=== PATIENT | female | born 1995 | race Caucasian/White ===

== ENCOUNTER → 2025-05-31 10:02 | Outpatient (CLI) | payer BC, SELFPAY ==
--- OUTSIDE RECORDS SUMMARY | 2025-05-31 10:08 | XMS_ITS | Clinical Summary ---
Author Organization [facility] Address [address] [place] [address] Phone Care Team Providers Care Reliner Name Role Phone Radha De La Cruz DO Primary Care Provider [phone] Allergies No known active allergies Medications nicotine (NICODERM CQ) 21 mg/24 hr TD Patch 24 hrIndications:To bacco dependence due to cigarettes Place 1 Patch onto the skin every 24 hours. 30 Patch 1 05/19/2024 Active Active Problems Problem Noted Date Diagnosed Date Pain in right finger(s) 05/19/2024 Other acne 05/19/2024 Acute tonsillitis 05/19/2024 Tobacco dependence due to cigarettes 03/12/2023 Gastroesophageal reflux dise ase with esophagitis without hemorrhage 03/12/2023 Suppurative hidradenitis 03/06/2023 Overview (03/06/2023): no noted inflammed lesions but old lesions noted- rec dietary changes, loose fitting underwear, reduce friction, if worsens RTO S/P ACL surgery 04/25/2013 MMT (medial meniscus tear) 11/29/2012 Smoker Overview (06/19/2016): 1/2 PPD, started at age 18 Wears glasses Resolved Problems Problem Noted Date Diagnosed Date Resolved Date Routine infant or child health check 05/19/2024 05/19/2024 Need for vaccination 05/18/2013 024 Immunizations Immunization Administration Dates Next Due DTP 1996 DTP/HiB 01/23/1997,1996,1996 DTaP, Unspecified Formulation 10/14/2000, 998,1996 HPV Quadrivalent 01/04/2016, 4,09/05/2013,0809/2012 Hep A/Hep B 12/05/2015,06/11/2015,05/07/2015 Hepatitis B, Ped/Adol 1996 Hepatitis B, Unspecified Formulation 1997, 1996 HiB, Unspecified Formulation 10/14/2000,09/23/19 97,1996 IPV 06/11/2015,10/14/2000 Influenza Vaccine Quadrivalent 06/19/2014 Influenza, Live, Intranasal 08/09/2015 MMR 10/14/2000,08/14/1998 Meningococcal Conjugate 05/18/2013 Meningococcal Oligosaccharide Conjugate 05/07/20 15 Meningococcal Polysaccharide 04/12/2008 OPV-Trivalent 01/23/1997,1996 Polio, Unspecified Formulation 1996 Tdap 05/07/2015,04/12/2008 Varicella 05/02/2015,04/12/2008,1997 Surgical History Surgery Date Site/Laterality Comments KNEE SURGERY Right ACL KNEE SURGERY 09/28/2011 - 09/27/2012 Right ACL KNEE SURGERY 09/28/2012 - 09/27/2013 Right ACL and meniscus repair KNEE ARTHROSCOPY 06/24/2016 Right RIGHT KNEE ARTHROSCOPY PARTIAL MEDIAL MENISCECTOMY CHONDROPLASTY ; Surgeon: Cassius Santos MD; Location: [facility]; Service: Orthopedics Medical History Medical History Date Comments Smoker 1/2 PPD, started at age 18 Wears glasses Family History Relation Name Status Comments Father Alive Mother Alive Social History Tobacco Use Types Packs/Day Years Used Date Smoking Tobacco: Every Day Cigarettes 0.5 11.7 Started: 09/28/2013 Smokeless Tobacco: Never Tobacco Cessation:Ready to Q uit: Not Asked; Counseling Given: Not Answered Alcohol Use Standard Drinks/Week Comments Not Currently 0 (1 standard drink = 0.6 oz pur e alcohol) PHQ-2 Answer Date Recorded PHQ-2 Total Score 0 03/12/2023 Sexually Active Control Partners Comments Yes Other-see comments Male none Comments No Sex and Gender Information Value Date Recorded Sex Assigned at Not on file Legal Sex Female 7:21 AM EDT Gender Identity Not on file Sexual Orientation Not on file Obstetrics History Para Term AB IAB SAB Ectopic Multiple Livin g Live Births 0 0 0 0 0 0 0 0 0 0 Last Filed Vital Signs Vital Sign Reading Time Taken Comments Blood Pressure 120/80 05/19/2024 8:15 AM EDT Pulse 76 05/19/2024 8:15 AM EDT Temperature 37 C (98.6 F) 05/19/2024 8:15 AM EDT Respiratory Rate 16 03/12/2023 1:22 PM EDT Oxygen Saturation 98% 05/19/2024 8:15 AM EDT Inhaled Oxygen Concentration - - Weight 57.2 kg (126 lb) 05/19/2024 8:15 AM EDT Height 165.1 cm (5' 5 ) 05/19/2024 8:15 AM EDT Body Mass Index 20.97 05/19/2024 8:15 AM EDT Plan of Treatment Health Maintenance Due Date Last Done Comments Pneumococcal Vaccine 0-49 (1 of 2 - PCV) 2015 COVID-19 Vaccine ( - season) 2024 DTaP/TDaP/Td (8 - Td or Tdap) 05/07/2025 05/07/2015, 04/12/2008, 10/14/2000, Additional history exists Annual Wellness Exam 05/19/2025 05/19/2024 Influenza Vaccine (#1) 2025 08/09/2015, 2013 Cervical Cancer Screening 03/06/2026 Pap Smear 03/06/2026 03/06/2023, 08/29, 09/17/2021, Additional history exists Hepatitis B Vaccine Completed 12/05/2015, 06/11/2015, 05/07/2015, Additional history exists Meningococcal B Vaccine Aged Out No l onger eligible based on patient's age to complete this topic Goals Goal Patient Goal Type Associated Problems Recent Progress Patient-Stated? Author Maintain a healthy diet, exercise regularly and maintain an ideal body weight General No Jesse Rinaldi MA Stay Tobacco Free Lifestyle No Jesse Rinaldi MA Medical Devices Implanted Type Area Audit Officer Device Identifier Shelf Expiration Date Model / Serial / Lot Acl Staple X 1 And ?X 1 Procedures Procedure Name Priority Date/Time Associated Diagnosis Comments RADIO REPAIRER CYTOLOGY REQUEST (PAP ONLY) Routine 03/06/2023 3:15 PM EDT Well female exam with routine gynecological exam Screening for cervical cancer Screening for STDs (sexually transmitted diseases) from Last 3 Months or Most Recently Relevant to Health Maintenance Results * RADIO REPAIRER CYTOLOGY REQUEST (PAP ONLY) (03/06/2023 3:15 PM EDT) CASE REPORT Gynecologic Cytology Report Case: [id number] Authorizing Provider: Maricarmen Braxton APRN Collected: 03/06/2023 1515 Ordering Location: [facility] Edg Received: 03/06/2023 1515 First Screen: Kasi Rodriges CT Rescreen: Indu Soriano CT Specimen: LIQUID-BASED PAP - CERVICAL/ENDOCERV ICAL, Cervix, Endocervical 03/11/2023 9:54 AM EDT [facility] PAP FINAL DIAGNOSIS Negative for intraepithelial lesion or malignancy 03/11/2023 9:54 AM EDT [facility] at 0954 EDT MICROSCOPIC DESCRIPTION Microscopic examination is performed and the findings corroborate the diagnosis. 03/11/2023 9:54 AM EDT [facility] PAP SMEAR ADEQUACY Satisfactory for evaluation 03/11/2023 9:54 AM EDT [facility] ENDOCERVICAL T-ZONE Transformation zone present 03/11/2023 9:54 AM EDT [facility] EMBEDDED IMAGES 9:54 AM EDT [facility] PAP DISCLAIMER The Pap Smear is a screening test that aids in the detection of cervical cancer and cancer precursors. Both false positive and false negative results can occur. The test should be used at regular intervals, and positive results should be confirmed before definitive therapy. Processed using the ThinPrep Internet Network Specialist Automated cytology screening device (Fan TV). 03/11/2023 9:54 AM EDT [facility] Thin Prep ENDOCERVICAL STRUCTURE / Unknown 03/06/2023 3:15 PM EDT 03/06/2023 3:15 PM EDT us Maricarmen Braxton PARASITOLOGY TEACHER CYTOLOGY ORDERABLES Final Result [facility] [address] [place] [address] from Last 3 Months or Most Recently Relevant to Health Maintenance Insurance ANTHEM PPO ANTHEM PPO Care Teams Reliner Relationship Specialty Start Date End Date Radha De La Cruz DO [address] [place] [address] PCP - General Family Medicine 05/19/24
--- OUTSIDE RECORDS SUMMARY | 2025-05-31 10:08 | XMS_ITS | Clinical Summary ---
Author Organization [facility] Address [address] [place] [id number] Care Team Providers Care Data Capture Clerk Name Role Phone None, None Primary Care Provider Unavailabl e Allergies No known active allergies Medications vit,manisha 73/iron/folic ( vitamin with iron - folic acid) Tablet Take 1 Tablet by mouth in the morning. Active Acetaminophen-Caff eine (Excedrin Tension Headache) 500-65 mg Tablet Take 1-2 Tablets by mouth every 6 hours as needed (headaceh). 20 Tablet 1 5 Active acetaminophen (TYLENOL) 500 mg tablet Take 2 Tablets (1,000 mg) by mouth every 6 hours. 30 Tablet 02/27/2025 1:24 PM EDT 5 Active ibuprofen (MOTRIN) 600 mg tablet Take 1 Tablet (600 mg) by mouth every 6 hours. 60 Tablet 02/27/2025 1:24 PM EDT 5 Active senna (SENOKOT) 8.6 mg Take 2 Tablets by mouth nightly at bedtime. 30 Tablet 02/27/2025 1:24 PM EDT 5 Active cephALEXin (KEFLEX) 500 mg capsule 5 Active norethindrone (MICRONOR) 0.35 mg TabletIndications: General counseling and advice on female contraception Take 1 Tablet (0.35 mg) by mouth in the morning. Take all pills in the pack. 84 Tablet 4 5 Active Active Problems Problem Noted Date Diagnosed Date Rh negative state in antepartum period 5 Overview (11/30/2024): cfDNA c/w Rh positive Rhogam 11/30/24 Cigarette smoker 07/26/2024 Overview (08/09/2024): 08/09/24- wellbutrin sent to pharmacy Resolved Problems Problem Noted Date Diagnosed Date Resolved Date 02/25/2025 03/19/2025 Velamentous insertion of umb ilical cord, antepartum 11/02/2024 03/20/2025 Overview (11/02/2024): Cord appears velamentous with possible succenturiate lobe. Plan growth US + ANFS at 36 weeks. Placenta succenturiate lobe affecting fetus 11/02/2024 03/20/2025 Overview (11/02/2024): ?possible at 24 week scan Supervision of normal first , antepartum 07/26/2024 03/20/2025 Overview (01/28/2025): DELIVERY TYPE: Rh: neg Aneuploidy: Nai normal AFP: Negative Anatomy scan: Level I complete, EFW 90%, cord appears velamentous with possible succenturiate lobe GCT: 68 Tdap: 11/30/24 Flu shot: RSV vaccine: GBS: negative Tubal ligation: Pre BMI: 21.13 Varicella immune Hemoglobin Electrophoresis wnl SBIRT low risk Plans to breast feed Encounters Date Type Department Care Team Description 03/20/2025 2:15 PM EDT Office Visit [facility] - Obstetrics & Gynecology, [address] [address] Audrey Gilliam DO Encounter for visit (Primary Dx); General counseling and advice on female contraception 02/28/2025 Abstract [facility] - Obstetrics & Gynecology, [address] [address] Negin Gutierrez MD from Last 3 Months Immunizations Immunization Administration Dates Next Due Tdap 11/30/2024 Family History Medical History Relation Name Comments Hypertension Father Cancer Maternal Grandfather Started as pancreatic? COPD Maternal Grandmother Asthma Mother Hypertension Mother Relation Name Status Comments Father Maternal Grandfather Maternal Grandmother Mother Social History Tobacco Use Types Packs/Day Years Used Date Smoking Tobacco: Every Day Cigarettes 0.3 11.7 Started: 2013 Smokeless Tobacco: Never Alcohol Use Standard Drinks/Week Comments Not Currently 0 (1 standard drink = 0.6 oz pur e alcohol) [facility] Utilities Answer Date Recorded In the past 12 months has th e [employer], oil, or water [employer] threatened to shut off services in your home? Patient declined 02/25/2025 Humiliation, Afraid, Rape, and Kick questionnair e Answer Date Recorded Within the last year, have y ou been afraid of your partner or ex-partner? Patient declined 02/25/2025 Within the last year, have y ou been humiliated or emotionally abused in other ways by your partner or ex-partner? Patient declined 02/25/2025 Within the last year, have y ou been kicked, hit, slapped, or otherwise physically hurt by your partner or ex-partner? Patient declined 02/25/2025 Within the last year, have y ou been raped or forced to have any kind of sexual activity by your partner or ex-partner? Patient declined 02/25/2025 Hunger Vital Sign Answer Date Recorded Within the past 12 months, y ou worried that your food would run out before you got the money to buy more. Never true 02/26/20 25 Within the past 12 months, t he food you bought just didn't last and you didn't have money to get more. Never true 02/25/2025 PRAPARE - Transportation Answer Date Re corded In the past 12 months, has l ack of transportation kept you from medical appointments or from getting medications? Patient declined 02/25/2025 In the past 12 months, has l ack of transportation kept you from meetings, work, or from getting things needed for daily living? Patient declined 02/25/2025 Housing Stability Vital Sign Answer Alcides e Recorded In the last 12 months, was t here a time when you were not able to pay the mortgage or rent on time? Patient declined 02/26/20 25 Number of Times Moved in the Last Year Not on fi le 02/25/2025 At any time in the past 12 m [facility], were you homeless or living in a mcc (including now)? Patient declined 02/25/2025 Comments No Sex and Gender Information Value Date Recorded Sex Assigned at Not on file Legal Sex Female 4:02 PM EDT Gender Identity Not on file Sexual Orientation Not on file Last Filed Vital Signs Vital Sign Reading Time Taken Comments Blood Pressure 122/78 03/20/2025 2:50 PM EDT Pulse 82 02/27/2025 8:31 AM EDT Temperature 37 C (98.6 F) 02/27/2025 8:31 AM EDT Respiratory Rate 16 02/27/2025 8:31 AM EDT Oxygen Saturation 100% 02/27/2025 8:31 AM EDT Inhaled Oxygen Concentration - - Weight 69.2 kg (152 lb 8 oz) 03/20/2025 2:50 PM EDT Height 167.6 cm (5' 6 ) 03/20/2025 2:50 PM EDT Body Mass Index 24.61 03/20/2025 2:50 PM EDT Plan of Treatment Upcoming Encounters Date Type Department Care Team (Late st Contact Info) Description 07/31/2025 9:00 AM EST Appointment [facility] - Obstetrics & Gynecology, [address] [place] [address] Lucy Feldman MD [address] [facility] [place] [address] Health Maintenance Due Date Last Done Comments Tobacco Cessation Counseling 2008 Cervical Cancer Screening 2017 Depression Screening 09/28/2024 COVID-19 Vaccine ( season) 2025 Influenza Vaccination (#1) 2025 Tetanus Vaccination (Every 10 Years) 11/30/2034 11/30/2024, 05/07/2015, 04/12/2008 Lipid Screening Completed 05/19/2024 HPV Vaccine Aged Out No longer eligi ble based on patient's age to complete this topic Insurance [employer] Advance Directives For more information, please contact: [phone] * Full Code (Latest Code Status on File) Date Activated Date Inactivated Comments 02/25/2025 10:08 AM No automated chest compression devices for VAD Patients Care Teams Data Capture Clerk Relationship Specialty Start Date End Date None, None [address] [place] [address] PCP - General 07/26/24
--- OUTSIDE RECORDS SUMMARY | 2025-05-31 10:08 | XMS_ITS | Encounter Summary ---
Author Organization [facility] Address [address] [place] [address] Care Team Providers Care Oil Sprayer Name Role Phone None, None Primary Care Provider Unavailabl e Encounter Details Date Type Department Care Team (Late st Contact Info) Description 02/28/2025 Abstract [facility] Physicians - Obstetrics & Gynecology, [address] [place] [phone] Negin Gutierrez MD [address] [place] [address] [address] [place], [place] [id number] Social History Tobacco Use Types Packs/Day Years Used Date Smoking Tobacco: Every Day Cigarettes 0.3 11.7 Started: 2013 Smokeless Tobacco: Never Alcohol Use Standard Drinks/Week Comments Not Currently 0 (1 standard drink = 0.6 oz pur e alcohol) [facility] Utilities Answer Date Recorded In the past 12 months has [employer], [employer], or water [employer] threatened to shut off services in your [...] any time in the past 12 m [facility], were you homeless or living in a detention (including now)? Patient declined 02/25/2025 Comments No Sex and Gender Information Value Date Recorded Sex Assigned at Not on file Legal Sex Female 4:02 PM EDT Gender Identity Not on file Sexual Orientation Not on file documented as of this encounter Functional Status * Are you blind or do you have difficulty seeing, even when wearing glasses? Answer Date of Assessment Author No 02/25/2025 9:54 AM EDT Omer Castillo RN * Do you have serious difficulty walking or climbing stairs? Answer Date of Assessment Author No 02/25/2025 9:54 AM Omer Dubose RN * Do you have difficulty dressing or bathing? Answer Date of Assessment Author No 02/25/2025 9:54 AM Omer Dubose RN * Because of a physical, mental, or emotional condition, do you have difficulty doing errands alone such as a visiting a doctor's office or shopping? Answer Date of Assessment Author No 02/25/2025 9:54 AM Omer Dubose RN documented as of this encounter Mental Status * Because of a physical, mental, or emotional condition, do you have serious difficulty concentrating, remembering, or making decisions? Answer Entry Date Author No 02/25/2025 9:54 AM Omer Dubose RN documented in this encounter Plan of Treatment Upcoming Encounters Date Type Department Care Team (Late st Contact Info) Description 07/31/2025 9:00 AM EST Appointment [facility] Physicians - Obstetrics & Gynecology, [place] [address] [place] [address] [address] [place] [address] Lucy Feldman MD [address] [facility] [address] [place], [place] [id number] documented as of this encounter Visit Diagnoses Not on filedocumented in this encounter Care Teams Oil Sprayer Relationship Specialty Start Date End Date None, None [address] [place] [id number] PCP - General 07/26/24 documented as of this encounter
--- NOTE | 2025-05-31 10:54 | PC.NURSE ---
Patient is here to check supply and growth. is now 12 weeks old and mother is starting back work Thursday. Mother feels as if her supply is not good. Reports she pumps 2-3 ounces every 3 hours. Reports infant eats 4-5 ounces a feed. States 4 weeks ago she switched to almost exclusively pumping and yesterday started one bottle of formula. Denies any pain while feeding or pumping. This IBCLC observed an excellent feeding- 10 minutes each side and score of 10/10- infant was asleep and relaxed after feeding. Infant consumed almost 4 ounces during this feed. POC was discussed with mother and she v/u and is agreeable. Plan is to have her wake up during the night time to pump every other night, power pump daily and make snacks that were suggested. Told patient that I would call her next week to check in.
== END ==
PROVIDERS: Visit Provider Obstetrics & Gynecology
DX: Z39.1 Encounter for care and examination of lactating mother (principal)
CPT/HCPCS: 99211